=== PATIENT | male | born 1970 | race Caucasian/White ===

== ENCOUNTER 2017-05-06 21:20 | Emergency (ER) | payer BC ==
[~2017-05-06] VITALS: Ht 182.9 cm; Wt 83.0 kg
[~2017-05-06 21:20] MED LIST: CRUTCHES
[2017-05-06 21:23] VITALS: BP 165/117
== END 2017-05-06 22:25 | disposition home or self-care (01) ==
LOC: ER 21:20
DX: S01.81XA Laceration without foreign body of other part of head, initial encounter (principal); S10.93XA Contusion of unspecified part of neck, initial encounter; W22.8XXA Striking against or struck by other objects, initial encounter; Y93.89 Activity, other specified; Y92.89 Other specified places as the place of occurrence of the external cause; Y99.8 Other external cause status